=== PATIENT | female | born 1970 | race Caucasian/White ===

== ENCOUNTER 2018-03-22 20:35 | Emergency (ER) | payer OTHER ==
[2018-03-22 20:47] VITALS: BP 111/74; PULSE 66; TEMP 97.7; BMI 19.8
--- NOTE | 2018-03-22 20:59 | PDOC ---
History of Present Illness - General History Source: Patient Exam Limitations: No Limitations - History of Present Illness Initial Comments: 03/22/18 21:23 The patient is a 47 year old female with no significant PMH who presents to the emergency department with a laceration to the left index finger since 5PM today. Patient states she was using a knife when she accidentally cut herself while doing arts and crafts. Patient states she applied pressure to the left index finger to stop the bleeding and then bandaged the area. Patient presents to the ER as she was concerned about a possible foreign body under the skin. Patient also admits to mild numbness to the area. Patient denies any difficulty ranging her left index finger. Patient denies any difficulty with wound healing in the past. Patient has not had a tetanus shot within the last 10 years. Allergies: NKA Past surgical history: None reported. Social history: No reported alcohol, drug or cigarette use. PCP: Dr. Ruby <Meghan Street - Last Filed: 03/22/18 21:24> <Dorcas Jacome - Last Filed: 03/23/18 04:43> - General Chief Complaint: Laceration Stated Complaint: LH 2ND FINGER LAC Time Seen by Provider: 03/22/18 20:59 Past History <Meghan Street - Last Filed: 03/22/18 21:24> - Past Medical History COPD: No - Suicide/Smoking/Psychosocial Hx Smoking History: Never smoked Hx Alcohol Use: No Drug/Substance Use Hx: No Substance Use Type: None <Dorcas Jacome - Last Filed: 03/23/18 04:43> - Past Medical History Allergies/Adverse Reactions: Allergies Allergy/AdvReac Type Severity Reaction Status Date / Time No Known Drug Allergies Allergy Verified 08/04/15 01:02 Home Medications: Ambulatory Orders NK [No Known Home Medication] 03/22/18 Review of Systems - Review of Systems Able to Perform ROS?: Yes Comments:: 03/22/18 21:25 ADULT ROS GENERAL/CONSTITUTIONAL: No fever or chills. No weakness. HEAD, EYES, EARS, NOSE AND THROAT: No change in vision. No ear pain or discharge. No sore throat. CARDIOVASCULAR: No chest pain or shortness of breath. RESPIRATORY: No cough, wheezing, or hemoptysis. GASTROINTESTINAL: No nausea, vomiting, diarrhea or constipation. GENITOURINARY: No dysuria, frequency, or change in urination. MUSCULOSKELETAL: No joint or muscle swelling or pain. No neck or back pain. SKIN: (+) Left index laceration. NEUROLOGIC: No headache, vertigo, loss of consciousness, or change in strength/ sensation. ENDOCRINE: No increased thirst. No abnormal weight change. HEMATOLOGIC/LYMPHATIC: No anemia, easy bleeding, or history of blood clots. ALLERGIC/IMMUNOLOGIC: No hives or skin allergy. <Meghan Street - Last Filed: 03/22/18 21:24> *Physical Exam - Vital Signs Last Vital Signs Temp Pulse Resp BP Pulse Ox 97.7 F 66 16 111/74 100 03/22/18 20:37 03/22/18 20:37 03/22/18 20:37 03/22/18 20:37 03/22/18 20:37 - Physical Exam Comments: 03/22/18 21:24 ADULT EXAM GENERAL: Awake, alert, and fully oriented, in no acute distress LUNGS: Breath sounds equal, clear to auscultation bilaterally. No wheezes, and no crackles HEART: Regular rate and rhythm, normal S1 and S2, no murmurs, rubs or gallops ABDOMEN: Soft, nontender, normoactive bowel sounds. No guarding, no rebound. No masses EXTREMITIES: Normal range of motion, no edema. NEUROLOGICAL: Cranial nerves II through XII grossly intact. Normal speech, normal gait SKIN: Warm, Dry (+) 1cm linear, partial thickness laceration of the radial aspect of the distal phalanx left 2nd digit; palmar side. Full cap refill. 2mm linear subcutaneous hematoma just proximal to the proximal aspect of the laceration. Motor and sensory is intact. <Meghan Street - Last Filed: 03/22/18 21:24> - Vital Signs Last Vital Signs Temp Pulse Resp BP Pulse Ox 97.7 F 66 16 111/74 100 03/22/18 20:37 03/22/18 20:37 03/22/18 20:37 03/22/18 20:37 03/22/18 20:37 <Dorcas Jacome - Last Filed: 03/23/18 04:43> Moderate Sedation - Procedure Monitoring Vital Signs: Procedure Monitoring Vital Signs Temperature 97.7 F 03/22/18 20:37 Pulse Rate 66 03/22/18 20:37 Respiratory Rate 16 03/22/18 20:37 Blood Pressure 111/74 03/22/18 20:37 O2 Sat by Pulse Oximetry (%) 100 03/22/18 20:37 <[address]han [address] - Last Filed: 03/22/18 21:24> - Procedure Monitoring Vital Signs: Procedure Monitoring Vital Signs Temperature 97.7 F 03/22/18 20:37 Pulse Rate 66 03/22/18 20:37 Respiratory Rate 16 03/22/18 20:37 Blood Pressure 111/74 03/22/18 20:37 O2 Sat by Pulse Oximetry (%) 100 03/22/18 20:37 <Dorcas Jacome - Last Filed: 03/23/18 04:43> Procedures - Laceration/Wound Repair Left Distal 2nd digit Wound Length: to 2.5 cm Wound Explored: clean Wound's Depth, Shape: superficial, linear Irrigated w/ Saline: Yes Betadine Prep: No Wound Repaired With: Dermabond Progress: Left second digit laceration carefully cleansed and irrigated using sterile normal saline. Area of ecchymosis proximal to proximal portion of the laceration appears to be superficial hematoma. The laceration itself is partial -thickness. After cleansing, wound edges were carefully approximated and wound was closed using skin adhesive. Sterile gauze dressing placed on wound. Patient tolerated procedure well <Dorcas Jacome - Last Filed: 03/23/18 04:43> Progress Note - Progress Note Progress Note: Documentation has been prepared under my direction and personally reviewed by me in its entirety. I attest that this documented accurately reflects all work, treatment, procedures and medical decision making performed by me. <Dorcas Jacome - Last Filed: 03/23/18 04:43> *DC/Admit/Observation/Transfer - Attestations Scribe Attestion: 03/22/18 21:25 Documentation prepared by Meghan Street, acting as medical laboratory technical officer for Dorcas Jacome MD. <Meghan Street - Last Filed: 03/22/18 21:24> <Dorcas Jacome - Last Filed: 03/23/18 04:43> Diagnosis at time of Disposition: Laceration of left index finger Qualifiers: Encounter type: initial encounter Damage to nail status: without damage Foreign body presence: without foreign body Qualified Code(s): S61.211A - Laceration without foreign body of left index finger without damage to nail, initial encounter - Discharge Dispostion Disposition: HOME Condition at time of disposition: Stable - Referrals Referrals: Stefanie Brennan MD [Primary Care Provider] - - Patient Instructions Printed Discharge Instructions: DI for Laceration Repair With Dermabond Additional Instructions: Keep area of laceration as dry as possible and elevated for the next 2 days Can use Band-Aid during the day (avoid placing adhesive of Band-Aid on wound) Return or see your doctor if wound is painful/swollen/red or if there is any red streaking up the finger - Post Discharge Activity
[2018-03-22] MEDS ORDERED: DIPHTH,PERTUSS(ACELL),TET 0.5 ML DISP.SYRIN IM ONE ×2 (21:16→21:17)
== END 2018-03-22 21:24 | disposition home or self-care (01) ==
LOC: FER 20:35
PROC: 3E0234Z Introduction of Serum, Toxoid and Vaccine into Muscle, Percutaneous Approach (ICD-10-PCS; principal; 2018-03-22)
DX: S61.211A Laceration without foreign body of left index finger without damage to nail, initial encounter (principal); W26.0XXA Contact with knife, initial encounter; Y93.89 Activity, other specified; Y92.9 Unspecified place or not applicable
CPT/HCPCS: 90715; 99282-25

== ENCOUNTER 2021-02-17 13:15 | Emergency (ER) | payer OTHER ==
[2021-02-17 13:25] VITALS: TEMP 98; BMI 19.8
[2021-02-17 14:41] LABS: ALBUMIN 4.4 g/dl (3.4-5.0); BILIRUBIN,TOTAL 1.2 mg/dl (0.2-1); CALCIUM 9.4 mg/dl (8.5-10); CREATININE 0.7 mg/dl (0.55-1.3); TOT PROT 7.6 g/dl (6.4-8.2)
[2021-02-17 15:56] LABS: BASO % 0.8 % (0-2.0); EOS % 3.2 % (0-4.5); HEMATOCRIT 36.5 % (32.4-45.2); HEMOGLOBIN 12.8 GM/dL (10.7-15.3); LYMPH % 27.3 % (8-40); MCH 31.7 pg (25.7-33.7); MCHC 35.2 g/dl (32.0-36.0); MEAN CELL VOLUME 90.2 fl (80-96); MONO % 7.8 % (3.8-10.2); NEUT % 60.9 % (42.8-82.8); PLATELET COUNT 259 10^3/uL (134-434); RBC 4.05 M/mm3 (3.60-5.2); RDW 12.7 % (11.6-15.6); WHITE BLOOD COUNT 3.5 K/mm3 (4.0-10.0)
[2021-02-17 18:09] VITALS: BP 122/69; PULSE 76
== END 2021-02-17 17:40 | disposition home or self-care (01) ==
LOC: FER 13:15
DX: R06.02 Shortness of breath (principal)
CPT/HCPCS: 36415; 71046-TC-FY; 80053; 84484; 85025; 93005; 93308; 99285-25; C9803; U0003; U0005